=== PATIENT | female | born 1985 ===

== ENCOUNTER → 2017-06-15 | Outpatient (CLI) | payer OTHER ==
--- NOTE | 2017-06-19 11:31 | HOLTMON ---
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 Baseline mechanism is sinus rhythm with normal AV conduction. Minimum HR was 47 bpm, average HR 81 bpm and maximum HR 156 bpm. There were no PVC's. Total 79 PAC's including brief runs of atrial tachycardia (max. 6 beats). No atrial fibrillation, no pauses and no VT. No reported symptoms. Essentially normal Holter monitor. Electronically Signed On 06-19-2017 11:31:19 EST by Lynette Sahu
== END ==
LOC: M EKG 09:50
PROVIDERS: ATTEND Registered Nurse
DX: R00.2 Palpitations (principal)